=== PATIENT | female | born 1980 | race Caucasian/White ===

== ENCOUNTER → 2018-08-05 13:29 | Outpatient (CLI) | payer SELFPAY ==
[2018-08-05 13:58] LABS: Absolute Lymphocyte Count 2.16 X10^3/ul (0.83-4.51); Absolute Neutrophil Count 6.7 X10^3/uL (2.0-7.7); Basophil# 0.04 X10^3/uL; Basophil% 0.4 % (0-1); Eosinophil# 0.17 X10^3/uL; Eosinophils% 1.7 % (0-5); Hematocrit 42.1 % (37-47); Lymphocyte # 2.16 X10^3/ul (4.0); Mean Corp Hgb Conc 33.3 g/gl (32-36); Mean Corpuscular Hgb 30.7 pg (27.0-32.0); Mean Corpuscular Volume 92.3 fL (81-99); Mean Platelet Vol. 10.5 fl (6.2-12.0); Monocyte# 0.78 X10^3/uL; Monocyte% 7.9 % (0-10); Neutrophil # 6.65 X10^3/uL (2.7-7.7); Neutrophil % 67.8 % (47-70); Platelet Count 259 K/mm3 (150-450); RBC Distribution Width CV 12.7 % (11.6-14.6); RBC Distribution Width SD 42.6 fl (35.1-43.9); Red Blood Count 4.56 M/mm3 (4.2-5.4); White Blood Count 9.8 K/mm3 (4.4-11.0)
[2018-08-05 14:04] LABS: Color, Urine Yellow (Yellow); Glucose, Dipstick Normal (Normal); Ketone-Dipstick Negative (Negative); Leukocyte Esterase-Dipstick Negative /ul (Negative); Nitrite-Dipstick Negative (Negative); Occult Blood-Urine Negative /ul (Negative); Protein-Dipstick Negative (Negative); Urine Bilirubin Dipstick Negative (Negative); Urine Clarity Clear (Clear); Urine Urobilinogen Normal (Normal)
[2018-08-05 14:12] LABS: POSITIVE COUNT NO; POSITIVE DIFFERENTIAL NO; POSITIVE MORPHOLOGY NO
[2018-08-05 14:23] LABS: Thyroid Stim Hormone (TSH) 1.68 uIU/mL (0.358-3.74)
[2018-08-05 14:58] LABS: HIV - WCH Non-Reactive (Nonreactive); Rubella IgG < 0.2 IU/mL
[2018-08-05 15:19] LABS: Chlamydia Trachomatis by PCR Negative (Negative); Neisserai gonorrhoeae by PCR Negative (Negative); Probe Check PASS; Sample Adequacy Control PASS; Specimen Processing Control PASS
[2018-08-06 15:25] LABS: HEPATITIS B SURFACE AG Negative (Negative); Hep C Antibodies <0.1 s/co ratio (0.0-0.9)
[2018-08-09 07:38] LABS: Prenatal RPR NONREACTIVE (NONREACTIVE)
== END ==
PROVIDERS: Visit Provider Obstetrics & Gynecology
DX: Z12.4 Encounter for screening for malignant neoplasm of cervix (principal); Z11.3 Encounter for screening for infections with a predominantly sexual mode of transmission
CPT/HCPCS: 81002; 84443; 85025; 86703; 86762; 86803; 87340; 87491; 87591; 88175; G0145

== ENCOUNTER → 2018-10-14 | Outpatient (CLI) | payer OTHER, SELFPAY ==
[2018-10-14 12:57] LABS: Hematocrit 36.6 % (37-47); Hemoglobin 12.3 g/dl (12.0-15.0); Mean Corp Hgb Conc 33.6 g/gl (32-36); Mean Corpuscular Hgb 31.2 pg (27.0-32.0); Mean Corpuscular Volume 92.9 fL (81-99); Mean Platelet Vol. 9.9 fl (6.2-12.0); Platelet Count 237 K/mm3 (150-450); RBC Distribution Width CV 12.7 % (11.6-14.6); RBC Distribution Width SD 43.6 fl (35.1-43.9); Red Blood Count 3.94 M/mm3 (4.2-5.4); White Blood Count 11.5 K/mm3 (4.4-11.0)
[2018-10-14 12:59] LABS: Scan Indicated on CBC? Y/N NO
[2018-10-14 13:12] LABS: Glucose Challenge Gest 1H 50g 109 mg/dL (70-140)
== END | disposition home or self-care (01) ==
PROVIDERS: Visit Provider Obstetrics & Gynecology
DX: Z34.82 Encounter for supervision of other normal pregnancy, second trimester (principal)
CPT/HCPCS: 82950; 85027

== ENCOUNTER → 2018-12-31 | Outpatient (CLI) | payer SELFPAY | END | disposition home or self-care (01) | LOC: LABSPEC 14:08 | PROVIDERS: Visit Provider Obstetrics & Gynecology | DX: Z36.85 Encounter for antenatal screening for Streptococcus B (principal) | CPT/HCPCS: 87081 ==

== ENCOUNTER 2019-01-29 17:50 | Inpatient (IN) | payer SELFPAY ==
[2019-01-29 18:42] VITALS: BMI 29.7
[2019-01-29 19:03] LABS: Absolute Lymphocyte Count 2.75 X10^3/uL (0.83-4.51); Absolute Neutrophil Count 12.1 X10^3/uL (2.0-7.7); Basophil# 0.04 X10^3/uL; Basophil% 0.3 % (0-1); Eosinophil# 0.09 X10^3/uL; Eosinophils% 0.6 % (0-5); Hematocrit 36.9 % (37-47); Hemoglobin 12.7 g/dL (12.0-15.0); Lymphocyte # 2.75 X10^3/ul (4.0); Lymphocyte % 17.4 % (19-41); Mean Corp Hgb Conc 34.4 g/dL (32-36); Mean Corpuscular Hgb 31.8 pg (27.0-32.0); Mean Corpuscular Volume 92.3 fL (81-99); Mean Platelet Vol. 10.7 fl (6.2-12.0); Monocyte# 0.78 X10^3/uL; Monocyte% 4.9 % (0-10); NRBC Flagged by Analyzer 0 % (0-5); Neutrophil # 12.13 X10^3/uL (2.7-7.7); Neutrophil % 76.4 % (47-70); Platelet Count 191 K/mm3 (150-450); RBC Distribution Width SD 40.6 fl (35.1-43.9); White Blood Count 15.9 K/mm3 (4.4-11.0)
--- NOTE | 2019-01-29 19:51 | HP.PCM_ITS ---
- Problem List (1) 40 weeks gestation of Status: Acute History Date of Admission: 01/29/19 Final TOMMY: 01/27/19 Final TOMMY Source: US <20 weeks Gestational age: 40 Weeks and 2 Days History of this : This is a 38 year-old, G [2], P [1], at 40 2/7 weeks gestational age with contractions. Allergies No Known Allergies Allergy (Verified 01/29/19 19:27) Home Medications: Home Medications Tablet 1 tab PO DAILY 01/29/19 Smoking Status: Never smoker Alcohol: None Number of Fetus(es): 1 Heart Tracin, moderate variability, + accelerations, no deceleration TOCO Analysis: 08/18 History Past Pregnancies: Past Pregnancies Delivery Date Name GA/Weeks Outcome Route Weight Infant Gender Labor Length Anesthesia Delivery Location Complications FOB 02/21 40 Living 7lb M 9h No epidural [facility] 3rd degree lac Toni Labs: GBS neg RPR nr HCV Ab neg HBsAg neg HIV nr Rubella nonimmune A positive Expected Infant Delivery Method: Spontaneous Vaginal Physical Exam Vitals: AVSS General: Alert, Oriented x3, No apparent distress HEENT: Atraumatic, Normocephalic Cardiovascular: Regular rate, Regular Rhythm, Normal S1, Normal S2 Lungs: Clear to auscultation, Normal air movement Abdomen: Soft, Non Tender, Non-Distended Neurological: Neuro grossly intact VALUE ADVISOR: Normal external genitalia Estimated gestational size: Appropriate for gestational size Presentation: Cephalic Cervix Dilation (cm): 5 Station: -2 Effacement (%): 90 - per RN PI exam Assessment/Plan All Active Problems 40 weeks gestation of (Acute) (spontaneous vaginal delivery) (Acute) This is a 38 year-old, G [2], P [1], at 40 2/7 weeks gestational age in labor, Cat I FHR -Intermittent auscultation -Pain management prn -Maternal and statuses reassuring -Consents reviewed and signed
[2019-01-29] MEDS: 0.9% Saline Lock 10 ML Syringe IV (21:35)
--- NOTE | 2019-01-30 00:13 | PCM.PN.BLA ---
Progress Note LABOR PROGRESS NOTE Contractions are closer together. Desires amniotomy. AVSS GEN - NAD, AAO x 3 FHR 150, moderate variability, + accelerations, no deceleations TOCO 3/10 min SVE 7/90/-2 A/P: 38yo @ 40 3/7wga, Cat I FHR -Amniotomy performed with clear fluid -Expectant management
[2019-01-30] MEDS: Oxytocin 30 units/NS 500 ml 30 UNITS/500 ML IV.SOLN 334 UNITS IV (00:34)
[2019-01-30] MEDS: 0.9% Saline Lock 10 ML Syringe IV ×2 (00:39→02:06)
--- NOTE | 2019-01-30 01:00 | PCM.OPRPT ---
Problem List (1) 40 weeks gestation of Status: Acute (2) (spontaneous vaginal delivery) Status: Acute Vaginal Delivery Maternal Presentation: Active Labor Method of Induction: - - AMniotomy for augmentation Amniotic Membrane Rupture Type: Artificial Rupture of Membrane time: 01/30/19 0001h Amniotic Fluid Description: Lightly stained meconium Final TOMMY: 01/27/19 Final TOMMY Source: US <20 weeks Gestational age: 40 Weeks and 3 Days Date of Procedure: 01/30/19 Pre-Operative Diagnosis: 40 3/7wga, labor Post-Operative Diagnosis: 40 3/7wga, labor Surgery/ Procedure Performed: Spontaneous Vaginal Delivery Type of Anesthesia: Local with 1% lidocaine Description of Procedure: Patient was FD/+2 station. She pushed to deliver a female infant in SENA. The was placed on the maternal abdomen and further attended by nursery personnel. The cord was doubly clamped and cut at 6 minutes of life. The placenta delivered spontaneously and appeared intact on inspection. A second degree perineal laceration was repaired with 3-0 Vicryl Rapide following local administration of 1% lidocaine. Sponge and needle counts were correct x 2. Presentation: Vertex Placental Delivery Description: Spontaneous Placenta Disposition: [facility] Cord Vessel Description: 3 Vessels Nuchal Cord Compression: Without compression Cord Entanglement: None Estimated Blood Loss: 300 ml Infant A gender: Female (1 minute): 8 (5 minute): 9 Episiotomy Description: None Laceration: Midline, Perineal Extension/lac, 2nd degree Medications given after delivery: IV Pitocin Complications: None
--- NOTE | 2019-01-30 01:04 | DCINST_ITS ---
Discharge Diet: No Restrictions Discharge Activity: Return to Normal Activity Lifting Restrictions: 10-20 lb Suture Line Care: Avoid Pulling/Pushing Additional Instructions: If you experience any of the following, contact your healthcare provider. * Bleeding that soaks a pad every hour for 2 hours * Fever 100.4 or higher * Unrelieved incision or abdominal pain * Swelling, redness, discharge or bleeding from your incision or episiotomy site * Your incision begins to separate * Problems urinating (including inability to urinate or burning while urinating). * Visual changes * Severe headache * Flu-like symptoms * Pain or redness in one of both of your breasts * Pain, warmth, tenderness or swelling in your legs, especially the calf area * Frequent nausea and vomiting * Symptoms of depression or anxiety If you experience any of the following, call 911 or go to the nearest Emergency Room. * Chest pain * Problems breathing * Seizure activity * Partial or complete paralysis of a body part, slurred speech, weakness or drooping of the face, or a sudden inability to walk or hold your balance Allergies/Adverse Reactions: Allergies No Known Allergies Allergy (Verified 01/29/19 19:27) Medications to take at Discharge Tablet 1 tab PO DAILY 01/29/19 Please Follow Up With: Geraldine Mcgovern MD When: 6 weeks Primary Care Physician: Care Physician,No Primary [Primary Care Provider] - Test Results: Test results from this visit will be discussed in further detail at your follow- up appointment, if applicable.
--- NOTE | 2019-01-30 01:04 | PCM.DCVAG ---
Discharge Diet: No Restrictions Discharge Activity: Return to Normal Activity Lifting Restrictions: 10-20 lb Suture Line Care: Avoid Pulling/Pushing Additional Instructions: If you experience any of the following, contact your healthcare provider. Bleeding that soaks a pad every hour for 2 hours Fever 100.4 or higher Unrelieved incision or abdominal pain Swelling, redness, discharge or bleeding from your incision or episiotomy site Your incision begins to separate Problems urinating (including inability to urinate or burning while urinating). Visual changes Severe headache Flu-like symptoms Pain or redness in one of both of your breasts Pain, warmth, tenderness or swelling in your legs, especially the calf area Frequent nausea and vomiting Symptoms of depression or anxiety If you experience any of the following, call 911 or go to the nearest Emergency Room. Chest pain Problems breathing Seizure activity Partial or complete paralysis of a body part, slurred speech, weakness or drooping of the face, or a sudden inability to walk or hold your balance Allergies/Adverse Reactions: Allergies No Known Allergies Allergy (Verified 01/29/19 19:27) Medications to take at Discharge Tablet 1 tab PO DAILY 01/29/19 Please Follow Up With: Geraldine Mcgovern MD When: 6 weeks Primary Care Physician: Care Physician,No Primary [Primary Care Provider] - Test Results: Test results from this visit will be discussed in further detail at your follow-up appointment, if applicable.
[2019-01-30] MEDS: Oxytocin 30 units/NS 500 ml 30 UNITS/500 ML IV.SOLN 167 UNITS IV (01:05)
[2019-01-30 02:50] VITALS: BP 95/64; PULSE 88; RESP 18; TEMP 37.2; O2SAT 96
--- NOTE | 2019-01-30 07:54 | PN.OBGYN_ITS ---
Patient Problems: Active and Suspected Problems 40 weeks gestation of (Acute) (spontaneous vaginal delivery) (Acute) Subjective: No issues overnight. Sarahi reports she is tired from little sleep. Perineal pain well controlled. Objective: avss - Physical Exam General: Alert, Oriented x3, Cooperative, No apparent distress HEENT: Atraumatic, Normocephalic Abdomen: Soft, Non Tender, Non-Distended, - - Fundus firm and nontender, lochia moderate Neurological: Neuro grossly intact Psych/Mental Status: Normal Affect, Appropriate, Alert and oriented to time, place, person, mood and affect Vital Signs Temp Pulse Resp BP Pulse Ox 98.9 F 88 18 95/64 96 01/30/19 02:50 01/30/19 02:50 01/30/19 02:50 01/30/19 02:50 01/30/19 02:50 Oxygen Delivery Method Room Air Weight: 76 kg Body Mass Index (BMI) 29.7 Intake and Output for Last 24 Hours 01/28/19 01/29/19 01/30/19 23:59 23:59 23:59 Intake Total 334 / 334 Balance 334 / 334 Laboratory Tests Past 24 Hrs 01/29/19 01/29/19 18:45 18:45 WBC 15.9 H RBC 4.00 L Hgb 12.7 Hct 36.9 L MCV 92.3 MCH 31.8 MCHC 34.4 RDW Std Deviation 40.6 RDW Coeff of Pia 12.0 Plt Count 191 MPV 10.7 Immature Gran % (Auto) 0.400 Neut % (Auto) 76.4 H Lymph % (Auto) 17.4 L [place] % (Auto) 4.9 Eos % (Auto) 0.6 Baso % (Auto) 0.3 Absolute Neuts (auto) 12.1 H Absolute Lymphs (auto) 2.75 Absolute Nucleated RBC 0.00 Nucleated RBC % 0 Blood Type A POSITIVE Antibody Screen NEGATIVE Medical Necessity - Tobacco Use Smoking Status: Never smoker Assessment/Plan All Active Problems 40 weeks gestation of (Acute) (spontaneous vaginal delivery) (Acute) This is a 38 year-old, G [2], P [2012] s/p doing well. -Rh positive - -Routine care
[2019-01-30 09:17] VITALS: BP 108/54; PULSE 76; RESP 16; TEMP 37.1; O2SAT 96
[2019-01-30 12:00] VITALS: BP 120/70; PULSE 74; RESP 16; TEMP 36.8; O2SAT 96
[2019-01-30] MEDS: Prenatal Vits Tablet 1 TABLET PO (12:17)
[2019-01-30 16:00] VITALS: BP 125/68; PULSE 70; RESP 14; TEMP 36.9; O2SAT 100
[2019-01-30 20:00] VITALS: BP 118/68; PULSE 75; RESP 16; TEMP 36.7; O2SAT 96
[2019-01-30] MEDS: Ibuprofen 600 MG Tablet PO (22:31)
[2019-01-31 01:16] VITALS: BP 111/69; PULSE 76; RESP 18; TEMP 37.2; O2SAT 97
--- NOTE | 2019-01-31 01:39 | NURSING ---
Late entry: Pt up to [facility] to void at 0300 on 01/30/19 with this RN.
--- NOTE | 2019-01-31 07:58 | PCM.PN.OB ---
Patient Problems: Active and Suspected Problems 40 weeks gestation of (Acute) (spontaneous vaginal delivery) (Acute) Subjective: Patient without complaints. Doing well. Ready to go home today. - Physical Exam Vital Signs Temp Pulse Resp BP Pulse Ox 98.9 F 76 18 111/69 97 01/31/19 01:16 01/31/19 01:16 01/31/19 01:16 01/31/19 01:16 01/31/19 01:16 Oxygen Delivery Method Room Air Weight: 167 lb 8.821 oz Body Mass Index (BMI) 29.7 Intake and Output for Last 24 Hours 01/29/19 01/30/19 01/31/19 23:59 23:59 23:59 Intake Total 334 / 334 Output Total 250 / 250 Balance 84 / 84 Medical Necessity - Tobacco Use Smoking Status: Never smoker Assessment/Plan All Active Problems 40 weeks gestation of (Acute) (spontaneous vaginal delivery) (Acute) Doing well day #2 status post routine spontaneous vaginal delivery. Will release to home with routine instructions.
--- NOTE | 2019-01-31 07:59 | PCM.DC.BLA ---
Discharge Summary Date of Admission: 01/28/19 Date of Discharge: 01/31/19 Summary: Admission diagnosis: Term intrauterine in labor Discharge diagnosis: Term intrauterine in labor Procedure: Routine spontaneous vaginal delivery HPI: Uneventful care. PE: Unremarkable. Hospital Course: The patient is a 38 year old who presented to [facility] in labor at 40+ weeks gestation. She subsequently had a teen spontaneous vaginal delivery. Postoperatively she did well and on day #2 it was felt she was ready for discharge. Homegoing Instruction: She was instructed not to drive for several days or if using narcotic pain medication, not to put anything in the vagina for 4 weeks, and to call the office for an appointment in 6 weeks. Discharge Medications: Continue vitamins at home. Patient Problems: Active and Suspected Problems 40 weeks gestation of (Acute) (spontaneous vaginal delivery) (Acute) - Physical Exam Vital Signs Temp Pulse Resp BP Pulse Ox 98.9 F 76 18 111/69 97 01/31/19 01:16 01/31/19 01:16 01/31/19 01:16 01/31/19 01:16 01/31/19 01:16 Oxygen Delivery Method Room Air Weight: 167 lb 8.821 oz Body Mass Index (BMI) 29.7 Intake and Output for Last 24 Hours 01/29/19 01/30/19 01/31/19 23:59 23:59 23:59 Intake Total 334 / 334 Output Total 250 / 250 Balance 84 / 84
[2019-01-31] MEDS: Ibuprofen 600 MG Tablet PO (08:24)
[2019-01-31 08:30] VITALS: BP 105/65; PULSE 84; RESP 16; TEMP 36.7
--- NOTE | 2019-02-05 15:55 | NURSING ---
Baby eating well and gaining weight, voiding and stooling. Mother had good experience. She really felt Jaquelin on nights was very helpful.
== END 2019-01-31 09:30 | disposition home or self-care (01) | DRG 807 ==
PROVIDERS: Admitting Provider Obstetrics & Gynecology; Visit Provider Obstetrics & Gynecology
DX: O48.0 Post-term pregnancy (principal); Z37.0 Single live birth; Z3A.40 40 weeks gestation of pregnancy; O77.0 Labor and delivery complicated by meconium in amniotic fluid; O69.81X0 Labor and delivery complicated by cord around neck, without compression, not applicable or unspecified; O70.1 Second degree perineal laceration during delivery
CPT/HCPCS: 59050; 85025; 86850; 86900; 99218; A4216; G0378